=== PATIENT | male | born 1945 | race Caucasian/White ===

== ENCOUNTER 2016-10-03 20:30 | Emergency (ER) | payer MEDICARE, OTHER ==
[2016-10-03 20:44] LABS: BASOPHIL# 0.1 X 10^3uL (0.0-0.1); BASOPHILS 1.5 % (0.0-2.0); EOSINOPHILS 1.6 % (0.0-6.0); EOSINOPHILS# 0.2 X 10^3uL (0.0-0.4); HEMATOCRIT 46.7 % (42.0-54.0); HEMOGLOBIN 15.9 g/dL (14.0-18.0); LYMPHOCYTES 22.9 % (20.0-40.0); LYMPHOCYTES# 2.2 X 10^3uL (0.8-3.8); MEAN CELL VOLUME 86.4 fL (80.0-100.0); MEAN CORPUS. HGB CONCENTRATION 34.1 g/dL (32.0-36.0); MEAN CORPUSCULAR HEMOGLOBIN 29.5 pg (29.0-35.0); MEAN PLATELET VOLUME 9.4 fL (7.4-10.4); MONOCYTES 6.9 % (2.0-10.0); MONOCYTES# 0.7 X 10^3uL (0.2-1.0); NEUTROPHILS 67.1 % (54.0-75.0); NEUTROPHILS# 6.6 X 10^3uL (2.6-6.7); PLATELET COUNT 190 X 10^3uL (130-440); RED BLOOD COUNT 5.41 X 10^6uL (4.20-6.10); RED CELL DISTRIBUTION WIDTH 12.6 % (11.5-14.5); WHITE BLOOD COUNT 9.8 X 10^3uL (3.9-10.7)
[2016-10-03] MEDS ORDERED: NITROGLYCERIN 0.4 MG TAB.SUBL SUBLINGUAL ONE (20:50)
[2016-10-03 20:54] LABS: ALBUMIN 4.6 g/dL (3.5-5.0); ALKALINE PHOSPHATASE 74 U/L (38-126); ALT 54 U/L (21-72); AST 32 U/L (17-59); BILIRUBIN, DIRECT 0.2 mg/dL (0.0-0.4); BILIRUBIN, TOTAL 1.1 mg/dL (0.2-1.3); BLOOD UREA NITROGEN 22 mg/dL (9-20); CALCIUM 10.3 mg/dL (8.4-10.2); CHLORIDE 108 mmol/L (98-107); EST GLOMERULAR FILTRATION RATE > 60 mL/min; GLUCOSE 171 mg/dL (70-100); LIPASE 393 U/L (23-300); MAGNESIUM 1.9 mg/dL (1.6-2.3); POTASSIUM 3.8 mmol/L (3.5-5.1); SODIUM 144 mmol/L (137-145); TOTAL PROTEIN 7.8 g/dL (6.3-8.2)
[2016-10-03 21:06] LABS: TROPONIN I 0.044 ng/mL (0.00-0.034)
[2016-10-03] MEDS ORDERED: NITROGLYCERIN OINT 1 GM PACKET ONE (21:09)
[2016-10-03] MEDS ORDERED: D5W IV ONE (21:09)
[2016-10-03] MEDS ORDERED: HEPARIN SOD PORCINE 5,000 UNITS/ML VIAL ONE (21:09)
[2016-10-03] MEDS ORDERED: HEPARIN SOD PORCINE IV ONE (21:09)
[2016-10-03] MEDS ORDERED: EPTIFIBATIDE IV ONE (21:31)
[2016-10-03] MEDS ORDERED: EPTIFIBATIDE 20 MG/10 ML VIAL IV ONE (21:46)
--- NOTE | 2016-10-03 22:03 | RADIOLOGY REPORT ---
AP PORTABLE CHEST RADIOGRAPH CLINICAL INFORMATION: Chest pain. COMPARISON: None. FINDINGS: Lungs are adequately inflated. Left basilar opacity may reflect summation shadow however at electasis or consolidation are not excluded. Costophrenic angles are clear. Cardiomediastinal silhoue tte is normal in size. IMPRESSION: Left basilar opacity may reflect summation shadow however atelectasis or consolidation are not exclud ed. Final Electronic Signature: This report was electronically signed by Pankaj Horton MD on 10/03/2016 10:01 PM. [email or web address] /
--- NOTE | 2016-10-03 22:26 | ER PHYSICIAN DOCUMENTATION ---
Physician Documentation [facility] Name:Simon Hill Age:71 yrs Sex:Male :1945 Arrival Date:10/03/2016 Time:20:30 BedTrauma-C Private MD:Physician, No ED Gautam Simon Disposition: 10/03 21:37 Critical Care:. Disposition: 10/03/16 21:37 Transfer ordered to [facility]. Diagnosis are Myocardial Infarction - non ST elevation, Unstable Angina. - Reason for transfer: Specialty. - Accepting physician is Dr. Huggins. - Condition is Serious. - Problem is new. - Symptoms are unchanged. COBRA Form completed? Transfer - Mode of Transportation Ambulance HPI: 20:49 This 71 yrs old Male presents to ER via Wheelchair with complaints of Chest jm Pain. 20:49 The patient or guardian reports chest pain that is located primarily in the substernal jm area. Onset: on and off all day. The pain does not radiate. 20:50 There has been no movement of pain. Associated signs and symptoms: Pertinent negatives:. The chest pain is described as dull, a heaviness. Duration: The patient or guardian reports multiple episodes, that are intermittent, that wax and wane, exertional . Modifying factors: the symptoms are aggravated by exertion. Severity of pain: At its worst the pain was moderate in the emergency department the pain is a 2 / 10. Risk factors for coronary artery disease include: This patient is a diabetic. This patient has a history of high cholesterol. This patient has a history of hypertension. The patient has experienced similar episodes in the past. The patient has not recently seen a physician. Pt's had on and off CP for the past few days, worse w exertion. . Historical: - Allergies: SULFA (SULFONAMIDES); - Home Meds: 1. potassium chloride 2.5 mEq oral tab 2. amlodipine-benazepril 5-10 mg oral cap 3. glipizide 5 mg oral tab 4. trazodone 100 mg oral tab 5. melatonin 3 mg oral tab 6. aspirin 81 mg oral tab 7. tamsulosin 0.4 mg oral cp24 8. metformin 500 mg oral Tb24 - PMHx: Hypertension; - Tetanus: unable to assess. - Ebola Screening: : Patient denies exposure to infectious person. Patient denies travel to an Ebola-affected area in the 21 days before illness onset. . - Social history: Smoking status: Patient states was never smoker of tobacco. Patient uses alcohol but reports only rare drinking. - Immunization history: Unable to Obtain. ROS: 20:53 Constitutional: Negative for fever, malaise. jm 20:53 ENT: Negative for rhinorrhea, sinus congestion, sinus pain, sore throat. 20:53 Neck: Negative for stiffness, swelling. 20:53 Cardiovascular: Positive for chest pain, Negative for palpitations. 20:53 Respiratory: Negative for cough, shortness of breath. 20:53 Abdomen/GI: Negative for abdominal pain, nausea, vomiting, diarrhea. 20:53 Back: Negative for pain with movement, radiated pain. 20:53 MS/extremity: Positive for swelling. 20:53 Skin: Positive for swelling. 20:53 Neuro: Negative for dizziness, weakness. 20:53 Psych: Negative for anxiety, depression. 20:53 All other systems are negative. Exam: 20:54 Constitutional: The patient appears alert, awake, comfortable, obese. 20:54 Eyes: Periorbital structures: appear normal, Conjunctiva: normal. 20:54 ENT: Mouth: is normal, Voice: is normal. 20:54 Neck: Thyroid: appears normal, Trachea: is midline with no obvious abnormalities. 20:54 Chest/axilla: Inspection: normal, Palpation: is normal. 20:54 Cardiovascular: Rate: normal, Rhythm: regular, Edema: 1+ edema to level of left midcalf and right midcalf. 20:54 Respiratory: Respirations: normal, Breath sounds: are normal. 20:54 Abdomen/GI: Inspection: abdomen appears normal, Palpation: abdomen is soft and non-tender. 20:54 Musculoskeletal/extremity: DVT Exam: No signs of deep vein thrombosis. Calves: are non-tender, have equal circumference. 20:54 Skin: Appearance: Color: pink, no rash present. 20:54 Neuro: Mentation: is normal, Memory: is normal. 20:54 Psych: Behavior/mood is pleasant, cooperative, Affect is calm. Vital Signs: 20:48 BP 188 / 88; Pulse 90; Resp 18; Pulse Ox 94% on R/A; Weight 108.86 kg; Pain 2/10; lb 21:46 BP 120 / 56; Pulse 73; Resp 20; Pulse Ox 94% 2 lpm ; Weight 108.86 kg; Pain 0/10; lb 22:11 BP 120 / 56; Pulse 73; Resp 20; Pulse Ox 94% ; Pain 0/10; lb MDM: 20:32 Patient medically screened. 20:42 EKG attached lb 20:55 Differential diagnosis: acute myocardial infarction, chest wall pain, Cholelithiasis stable angina, unstable angina. Patient took aspirin in the Emergency Department. Data reviewed: vital signs, nurses notes, lab test result(s), EKG, radiologic studies, and as a result, I will *Transfer Patient. Test interpretation: by ED physician or midlevel provider: plain radiologic studies, ECG. Counseling: I had a detailed discussion with the patient and/or guardian regarding: the historical points, exam findings, and any diagnostic results supporting the discharge/admit diagnosis, lab results, radiology results, the need to transfer to another facility, [facility] does not immediately have the required specialist. ECG:. 21:36 Physician consultation: Dr. Fay was called at 21:05, was contacted at 21:10, regarding transfer, would like medications started, Integrilin . ED course: Pt w NSTEMI/Unstable angina. Will transfer to [facility]. 10/03 20:51 Order name: CBC AUTO DIF, MDIF/RMOR IF IND; Complete Time: 22:05 [facility] 10/03 20:55 Order name: BASIC METABOLIC PANEL; Complete Time: 22:05 [facility] 10/03 20:55 Order name: MAGNESIUM; Complete Time: 22:05 [facility] 10/03 20:55 Order name: HEPATIC PANEL; Complete Time: 22:05 [facility] 10/03 20:55 Order name: LIPASE; Complete Time: 22:05 [facility] 10/03 21:06 Order name: TROPONIN I; Complete Time: 22:05 [facility] 10/03 22:05 Order name: CHEST; [place] [id number] [facility] 10/03 20:33 Order name: 12-lead EKG; Complete Time: 20:41 10/03 20:33 Order name: Iv Saline Lock; Complete Time: 20:41 10/03 20:33 Order name: Place Patient On Monitor; Complete Time: 20:42 10/03 20:33 Order name: Pulse Ox Continuous; Complete Time: 20:41 EC:55 Rhythm is regular. QRS Harvey is Normal. MD interval is normal. QRS interval is normal. QT interval is normal. No Q waves. ST Segment is depressed in leads V3, V4, V5, V6, 2-5mm. Dispensed Medications: 20:41 Drug: Aspirin 81 mg, 4 tabs, total of 324 mg - Aspirin 81 mg; Route: PO; lb 21:50 Follow up: Response: No adverse reaction lb 20:41 Drug: Nitroglycerin 0.4 mg; Route: Sublingual; lb 21:50 Follow up: Response: Pain is decreased lb 21:00 Drug: Nitro-Bid Ointment 2 % 0.5 inches; Route: Transdermal; Site: anterior chest wall; lb 22:27 Follow up: Response: Pain is decreased lb 21:13 Drug: heparin 20 units/kg/hr; Route: IV; Rate: bolus; Site: right hand; lb 21:51 Follow up: IV Status: Infusing continued upon transfer; IV Intake: 50ml lb 21:53 Follow up: IV Intake: 2ml lb 21:13 Drug: heparin 12 units/kg/hr; Route: IV; Rate: calculated rate; Site: right hand; lb 21:53 Follow up: IV Status: Infusing continued upon transfer; IV Intake: 50ml lb 21:26 Drug: Integrilin 2 mcg/kg/min; Route: IV; Rate: calculated rate; Site: right lb antecubital; 21:54 Follow up: IV Status: Infusing continued upon transfer; IV Intake: 15ml lb 21:41 Drug: Integrilin 180 mcg/kg; Route: IVP; Site: right antecubital; lb 21:54 Follow up: Response: No adverse reaction Critical care time excluding procedures: 21:37 Critical care time: Bedside Care: 30 minutes, Consultation: 10 minutes, Family jm Intervention: 5 minutes. Total time: 45 minutes Signatures: Simon Florez MD MD jm Wisely, [facility] Saige Arenas
--- NOTE | 2016-10-03 22:26 | ER NURSING DOCUMENTATION ---
Nurse's Notes [facility] Name:Simon Hill Age:71 yrs Sex:Male :1945 Arrival Date:10/03/2016 Time:20:30 BedTrauma-C Private MD:Physician, No Diagnosis:Myocardial Infarction - non ST elevation;Unstable Angina Presentation: 10/03 20:35 Presenting complaint:. lb 20:35 Acuity: CHRISTINA 2 lb 20:43 Presenting complaint: Patient states: chest pain on and off for a few years, worse over lb past few weeks. right sided no radiation or shortness of breath. friends state increased SOB with ambulation recently. Transition of care: patient was not received from another setting of care. AIR CAT ACTIVATION no. Asprin Given Given in ED 324 mg po. Notified ED Physician of Gautam Aceves notified. 20:43 Method Of Arrival: Wheelchair lb Triage Assessment: 20:46 General: Appears uncomfortable, Behavior is appropriate for age, pleasant. Pain: lb Complains of pain in right breast Pain does not radiate. Pain currently is 2 out of 10 on a pain scale. Cardiovascular: Reports Rhythm is sinus rhythm with depression Chest pain is described as mild, is located in right radiates none began past 2 weeks. Historical: - Allergies: SULFA (SULFONAMIDES); - Home Meds: 1. potassium chloride 2.5 mEq oral tab 2. amlodipine-benazepril 5-10 mg oral cap 3. glipizide 5 mg oral tab 4. trazodone 100 mg oral tab 5. melatonin 3 mg oral tab 6. aspirin 81 mg oral tab 7. tamsulosin 0.4 mg oral cp24 8. metformin 500 mg oral Tb24 - PMHx: Hypertension; - Tetanus: unable to assess. - Ebola Screening: : Patient denies exposure to infectious person. Patient denies travel to an Ebola-affected area in the 21 days before illness onset. . - Social history: Smoking status: Patient states was never smoker of tobacco. Patient uses alcohol but reports only rare drinking. - Immunization history: Unable to Obtain. Screenin:47 Infectious Disease Risk None. Abuse screen: Denies threats or abuse. Denies injuries lb from another. Nutritional screening: No deficits noted. Assessment: 20:48 See Triage Assessment done by same RN. lb 22:25 Pain: Pain began years ago. lb Vital Signs: 20:48 BP 188 / 88; Pulse 90; Resp 18; Pulse Ox 94% on R/A; Weight 108.86 kg; Pain 2/10; lb 21:46 BP 120 / 56; Pulse 73; Resp 20; Pulse Ox 94% 2 lpm ; Weight 108.86 kg; Pain 0/10; lb 22:11 BP 120 / 56; Pulse 73; Resp 20; Pulse Ox 94% ; Pain 0/10; lb ED Course: 20:31 Patient arrived in ED. ma1 20:32 Simon Florez MD is Attending Physician. jm 20:32 Physician, No is Private Physician. ma1 20:35 Saige Arenas is Primary Nurse. lb 20:41 Triage completed. lb 20:42 EKG attached lb 21:05 Port Xray Completed. ms 21:55 Inserted peripheral IV: 18 gauge in right antecubital area and blood collected. Oxygen lb Oxygen administration via nasal cannula @ 2L/min. 21:55 Inserted peripheral IV: 18 gauge in right hand. lb 21:56 Valuables Remains with patient Patient has correct armband on for positive lb identification. Placed in gown. Bed in low position. Call light in reach. Side rails up X 1. personnel monitor on. Pulse ox on. NIBP on. Administered Medications: 20:41 Drug: Aspirin 81 mg, 4 tabs, total of 324 mg - Aspirin 81 mg; Route: PO; lb 21:50 Follow up: Response: No adverse reaction lb 20:41 Drug: Nitroglycerin 0.4 mg; Route: Sublingual; lb 21:50 Follow up: Response: Pain is decreased lb 21:00 Drug: Nitro-Bid Ointment 2 % 0.5 inches; Route: Transdermal; Site: anterior chest wall; lb 22:27 Follow up: Response: Pain is decreased lb 21:13 Drug: heparin 20 units/kg/hr; Route: IV; Rate: bolus; Site: right hand; lb 21:51 Follow up: IV Status: Infusing continued upon transfer; IV Intake: 50ml lb 21:53 Follow up: IV Intake: 2ml lb 21:13 Drug: heparin 12 units/kg/hr; Route: IV; Rate: calculated rate; Site: right hand; lb 21:53 Follow up: IV Status: Infusing continued upon transfer; IV Intake: 50ml lb 21:26 Drug: Integrilin 2 mcg/kg/min; Route: IV; Rate: calculated rate; Site: right lb antecubital; 21:54 Follow up: IV Status: Infusing continued upon transfer; IV Intake: 15ml lb 21:41 Drug: Integrilin 180 mcg/kg; Route: IVP; Site: right antecubital; lb 21:54 Follow up: Response: No adverse reaction lb Intake: 21:51 IV: 50ml; Total: 50ml. lb 21:53 IV: 50ml; Total: 100ml. lb 21:53 IV: 2ml; Total: 102ml. lb 21:54 IV: 15ml; Total: 117ml. lb Outcome: 21:37 ER care complete, transfer ordered by MD. lombardi 22:11 [facility] Time: October 03, 2016 at 21:00 Patient's face sheet was faxed to accepting facility. Face Sheet included patient's name, address, age, gender, contact information and insurance information. Patient will be transported by: [facility] ground. Report called to: Trice RUSSO Nurse and Physician Charting and Notes were sent to Accepting Facility. All tests and/or procedures with results, if applicable, were sent to accepting facility. 22:11 Condition: stable 22:11 Report given to Trice RUSSO 22:11 Discharge Assessment: Patient awake, alert and oriented x 3. No cognitive and/or functional deficits noted. Patient verbalized understanding of disposition instructions. 22:11 Instructed on need for transfer 22:26 Patient left the ED. lb Signatures: Simon Florez MD MD jm Strickland, Mary ms Wisely, Beth 2 Saige Arenas Melissa ma1
== END 2016-10-03 22:26 | disposition short-term general hospital (02) ==
LOC: ER 20:30
DX: I21.4 Non-ST elevation (NSTEMI) myocardial infarction (principal); R60.0 Localized edema; I20.0 Unstable angina; I10 Essential (primary) hypertension; E11.65 Type 2 diabetes mellitus with hyperglycemia; I49.1 Atrial premature depolarization; Z79.82 Long term (current) use of aspirin; Z79.899 Other long term (current) drug therapy; Z99.89 Dependence on other enabling machines and devices; Z74.3 Need for continuous supervision
CPT/HCPCS: 71010; 80048; 80076; 83690; 83735; 84484; 85025; 99285; J1327; J1644

== ENCOUNTER 2016-10-18 09:04 | Inpatient (IN) | payer MEDICARE, OTHER ==
[2016-10-18] MEDS ORDERED: ACETAMINOPHEN 325 MG TABLET PO PRN (09:52)
[2016-10-18] MEDS ORDERED: MAGNESIUM HYDROXIDE 30 ML UDC PO PRN (09:52)
[2016-10-18] MEDS ORDERED: GLYCERIN ADULT 2 GM SUPP.RECT RECTAL PRN (09:52)
[2016-10-18] MEDS ORDERED: POLYETHYLENE GLYCOL 3350 17 GM POWD.PACK PO PRN (09:52)
[2016-10-18] MEDS ORDERED: HOME MEDICATION LIST NEEDED 1 EA EACH MC ONE (09:52)
[2016-10-18] MEDS ORDERED: NITROGLYCERIN 0.4 MG TAB.SUBL SUBLINGUAL PRN (10:03)
[2016-10-18] MEDS: MUPIROCIN 2% TOPICAL SCH ×2 (17:24→21:09)
[2016-10-18] MEDS: WARFARIN SODIUM 2 MG TABLET PO SCH (17:35)
[2016-10-18 18:18] LABS: URINE MUCUS NONE SEEN (Up to 25%); URINE RBC NONE SEEN (0-5/hpf); URINE SQUAMOUS EPITHELIAL CELL NONE SEEN (<= 15/hpf)
[2016-10-18 18:21] LABS: URINE APPEARANCE CLEAR; URINE BACTERIA NONE SEEN (<10/hpf); URINE BILIRUBIN NEGATIVE (NEGATIVE); URINE BLOOD NEGATIVE (NEGATIVE); URINE COLOR YELLOW; URINE GLUCOSE NORMAL (NEGATIVE); URINE KETONE NEGATIVE (NEGATIVE); URINE LEUKOCYTE ESTERASE NEGATIVE (NEGATIVE); URINE NITRITE NEGATIVE (NEGATIVE); URINE PROTEIN NEGATIVE (NEG - TRACE); URINE SPECIFIC GRAVITY > OR = 1.030 (0.001-1.035); URINE UROBILINOGEN 0.2mg/dL (Normal) (NEG-1mg/dL); URINE WBC 0-4/hpf (0-4/hpf)
[2016-10-18] MEDS: AMIODARONE HCL 200 MG TABLET PO SCH (21:09)
[2016-10-18] MEDS: traZODone HCL 50 MG TABLET PO SCH (21:09)
[2016-10-18] MEDS: ATORVASTATIN CALCIUIM 40 MG TABLET PO SCH (21:10)
[2016-10-18] MEDS: BISACODYL 10 MG SUPP.RECT PR SCH (21:10)
[2016-10-18] MEDS: FAMOTIDINE 20 MG TABLET PO SCH (21:10)
[2016-10-18] MEDS: INSULIN GLARGINE,HUM.REC.ANLOG 100 UNITS/ML ML SUBCUT SCH (21:14)
[2016-10-19] MEDS: MUPIROCIN 2% TOPICAL SCH ×3 (08:14→20:34)
[2016-10-19] MEDS: TAMSULOSIN HCL 0.4 MG CAPSULE PO SCH (08:14)
[2016-10-19] MEDS: ESCITALOPRAM OXALATE 10 MG TABLET PO SCH (08:14)
[2016-10-19] MEDS: AMIODARONE HCL 200 MG TABLET PO SCH ×2 (08:14→20:38)
[2016-10-19] MEDS: FAMOTIDINE 20 MG TABLET PO SCH ×2 (08:15→20:39)
[2016-10-19] MEDS: LISINOPRIL 10 MG TABLET PO SCH (11:17)
[2016-10-19] MEDS ORDERED: POLYETHYLENE GLYCOL 3350 17 GM POWD.PACK PO PRN (12:20)
[2016-10-19] MEDS: BISACODYL 10 MG SUPP.RECT PR SCH ×2 (17:53→20:43)
[2016-10-19] MEDS: GLIPIZIDE 5 MG TABLET PO SCH (18:00)
[2016-10-19] MEDS: WARFARIN SODIUM 2 MG TABLET PO SCH (18:00)
--- NOTE | 2016-10-19 18:36 | HISTORY & PHYSICAL ---
DATE OF ADMISSION: 10/18/16 ATTENDING PHYSICIAN: Tiana Daily MD HISTORY OF PRESENT ILLNESS: This patient was admitted to [facility] on 10/03/16 with unstable angina. After some evaluation where he was noted to have significant coronary artery disease and an ejection fraction of 50 %, he was taken for 3 vessel coronary artery bypass grafting. He did fairly well in his postoperative period, although he did have over an hour of atrial fibrillation with rates up to the 130s, self converting. He was placed on Amiodarone and Coumadin for paroxysmal atrial fibrillation and will have continued follow up with Cardiology as an outpatient. He is now being admitted as a swing bed patient at [facility] for monitoring of his INR, monitoring of his vital signs, beginning cardiac rehab. He comes to us on postoperative day #12. PAST MEDICAL HISTORY 1. Type 2 diabetes. 2. Hyperlipidemia. 3. Hypertension. 4. Obesity. 5. Obstructive sleep apnea. 6. History of renal stones. 7. History of peripheral neuropathy. PAST SURGICAL HISTORY 1. 3 vessel coronary artery bypass graft. MEDICATIONS Amiodarone 200 mg p.o. b.i.d. Aspirin 81 mg enteric coated p.o. daily. Lipitor 80 mg p.o. daily. Oxygen as needed 1-2 liters by nasal cannula. Lexapro 20 mg p.o. daily. Glipizide 7.5 mg p.o. b.i.d. [place] 5/325 1 p.o. q.6 hours PRN. Lisinopril 10 mg p.o. daily. Melatonin 3-6 mg p.o. at h.s. PRN sleep. Metformin 2000 mg p.o. daily. Nitrostat 0.4 mg under the tongue PRN angina. Prilosec 20 mg p.o. daily. MiraLax 1 capful as needed. Tamsulosin 0.4 mg p.o. daily. Trazadone 100 mg p.o. at h.s. Coumadin 2.5-5 mg p.o. daily. ALLERGIES: Sulfa. SOCIAL HISTORY: Partially disabled. 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 He drinks 3 drinks per week. He lives with his Maryjo. REVIEW OF SYSTEMS: There were no new complaints to the weeks leading up to his unstable angina. PHYSICAL EXAMINATION VITAL SIGNS: Afebrile with a blood pressure of 135/74, pulse 60, respiratory rate 16-20. He is 92% on 2 liters of oxygen at rest. GENERAL: Pleasant older gentleman in no acute distress. Presently he has a regular rate and rhythm with no arrhythmia or murmur noted. CHEST: Clear to auscultation throughout. ABDOMEN: Obese, soft and nontender. EXTREMITIES: Remarkable for 1+ edema. He is wearing SVEN hose. He has some discomfort over his distal incision related to vein harvesting, but there is no erythema or significant ecchymosis. NEUROLOGIC: Symmetric exam. ASSESSMENT AND PLAN 1. Status post cardiac surgery for multiple vessel coronary artery disease. He is on the medications as recommended by Cardiology and will begin Physical Therapy. We will be alert to any cardiac complaints or decompensation. 2. Hypoxia. He still does have an oxygen requirement and uses BiPAP at night, and this will be monitored and hopefully get off the oxygen as he becomes more active. 3. Right lower extremity pain. I do not see any cellulitis or concern for clot. Will monitor and anticipate slow steady improvement. This was a minor surgical site and that is probably the reason for his discomfort. 4. Diabetes. His routine medications will be re-initiated and his blood sugars monitored as he settles into our swing bed program. It seems that his blood sugars have been fairly easy to control in the recent past. VALDO
[2016-10-19] MEDS: traZODone HCL 50 MG TABLET PO SCH (20:39)
[2016-10-19] MEDS: MELATONIN 3 MG TABLET PO PRN (20:39)
[2016-10-19] MEDS: ATORVASTATIN CALCIUIM 40 MG TABLET PO SCH (20:39)
[2016-10-19] MEDS: INSULIN GLARGINE,HUM.REC.ANLOG 100 UNITS/ML ML SUBCUT SCH (21:27)
[2016-10-20] MEDS: PANTOPRAZOLE 40 MG TABLET PO SCH (06:20)
[2016-10-20] MEDS: GLIPIZIDE 5 MG TABLET PO SCH (06:20)
[2016-10-20] MEDS: MUPIROCIN 2% TOPICAL SCH ×3 (10:09→22:30)
[2016-10-20] MEDS: FAMOTIDINE 20 MG TABLET PO SCH ×2 (10:10→21:38)
[2016-10-20] MEDS: BISACODYL 10 MG SUPP.RECT PR SCH ×2 (10:10→21:08)
[2016-10-20] MEDS: ESCITALOPRAM OXALATE 10 MG TABLET PO SCH (10:14)
[2016-10-20] MEDS: metFORMIN ER 500 MG TABLET PO SCH (10:14)
[2016-10-20] MEDS: TAMSULOSIN HCL 0.4 MG CAPSULE PO SCH (10:15)
[2016-10-20] MEDS: LISINOPRIL 10 MG TABLET PO SCH (10:32)
[2016-10-20] MEDS: AMIODARONE HCL 200 MG TABLET PO SCH ×2 (10:34→21:38)
[2016-10-20] MEDS: WARFARIN SODIUM 2 MG TABLET PO SCH (16:04)
[2016-10-20] MEDS ORDERED: INSULIN GLARGINE,HUM.REC.ANLOG 100 UNITS/ML ML SUBCUT SCH (19:36)
[2016-10-20] MEDS: ATORVASTATIN CALCIUIM 40 MG TABLET PO SCH (21:37)
[2016-10-20] MEDS: traZODone HCL 50 MG TABLET PO SCH (21:37)
[2016-10-21] MEDS: PANTOPRAZOLE 40 MG TABLET PO SCH (06:15)
[2016-10-21] MEDS: BISACODYL 10 MG SUPP.RECT PR SCH ×2 (08:33→21:46)
[2016-10-21] MEDS: AMIODARONE HCL 200 MG TABLET PO SCH ×2 (08:33→21:45)
[2016-10-21] MEDS: TAMSULOSIN HCL 0.4 MG CAPSULE PO SCH (08:34)
[2016-10-21] MEDS: metFORMIN ER 500 MG TABLET PO SCH (08:35)
[2016-10-21] MEDS: ESCITALOPRAM OXALATE 10 MG TABLET PO SCH (08:35)
[2016-10-21] MEDS: LISINOPRIL 10 MG TABLET PO SCH (08:36)
[2016-10-21] MEDS: FAMOTIDINE 20 MG TABLET PO SCH ×2 (08:36→21:44)
[2016-10-21] MEDS: MUPIROCIN 2% TOPICAL SCH ×3 (08:37→21:44)
[2016-10-21] MEDS: traZODone HCL 50 MG TABLET PO SCH (21:44)
[2016-10-21] MEDS: ATORVASTATIN CALCIUIM 40 MG TABLET PO SCH (21:44)
[2016-10-21] MEDS: INSULIN GLARGINE,HUM.REC.ANLOG 100 UNITS/ML ML SUBCUT SCH (21:45)
[2016-10-22] MEDS: PANTOPRAZOLE 40 MG TABLET PO SCH (06:12)
--- NOTE | 2016-10-22 08:31 | PROGRESS NOTE: IM APSO ---
Assessment and Plan - Date of Encounter Date of Encounter: 10/22/16 (1) s/p CABG Status: Chronic Assessment and plan: Doing well in recovery, diffusely weak, eager to work with PT. Home with hospital bed sometime in the next week probably. Current Visit: Yes (2) hypertension Status: Chronic Assessment and plan: BP on average acceptable; follow. Current Visit: Yes (3) DM2 Status: Chronic Assessment and plan: BS much more acceptable today on reduced medication; probably he is eating better in hospital requiring some changes. Current Visit: Yes (4) leg pain right Status: Acute Assessment and plan: r/t surgical wounds, no sign cellulitis or clot. Current Visit: Yes (5) parox a fib Status: Chronic Assessment and plan: f/u with cardiology planned, continue present meds (amiodarone and coumadin); INR has been elevated, rechk on Friday after dose reduction. Current Visit: Yes - Time Spent With Patient Total time spent with greater than 50% in coordination of care (as documented) at patient's floor/unit and/or counseling patient: IM: PN Subjective Respiratory: no SOB Musculoskeletal: pain (minimal distal incision RLE) Integumentary: wound (chest and RLE) IM: PN Objective Exam - I&O/Vital Signs I&O: Intake & Output 10/21/16 10/22/16 10/22/16 21:59 05:59 13:59 Intake Total 840 175 Output Total 800 600 Balance 40 -425 Intake: Oral 840 175 Output: Urine 800 600 Other: Urine Appearance Clear Clear Urine Color Pale Yellow Yellow Voiding Method Toilet Urinal # Voids 2 Vital Signs: Last Vital Signs Temp 36.5 C 10/22/16 06:27 Pulse 51 L 10/22/16 06:27 Resp 16 10/22/16 06:27 BP 158/77 10/22/16 06:27 Pulse Ox 94 10/22/16 06:27 Oxygen Flow Rate 2 Oxygen Delivery Method Nasal Cannula - Constitutional General appearance: Present: cooperative - ENT ENT exam: Present: mucous membranes moist - Neck Neck exam: Absent: lymphadenopathy - Respiratory Respiratory exam: Present: clear - Cardiovascular Cardiovascular exam: Present: RRR - GI/Abdominal GI/Abdominal exam: Present: soft - Extremities Exam Extremities exam: Absent: edema - Neurological Exam Neurological exam: Present: oriented X3 - Allied Health Notes Allied health notes reviewed: nursing, PT - Lab Labs: Laboratory Last Values Capillary INR 3.7 (0.8-1.2) H 10/21/16 06:15 Urine Color Yellow 10/18/16 Unknown Urine Appearance Clear 10/18/16 Unknown Urine pH 5.0 (5-7) 10/18/16 Unknown Ur Specific [place] > or = 1.030 (0.001-1.035) 10/18/16 Unknown Urine Protein Negative (NEG - TRACE) 10/18/16 Unknown Urine Ketones Negative (NEGATIVE) 10/18/16 Unknown Urine Blood Negative (NEGATIVE) 10/18/16 Unknown Urine Nitrate Negative (NEGATIVE) 10/18/16 Unknown Urine Bilirubin Negative (NEGATIVE) 10/18/16 Unknown Urine Urobilinogen 0.2mg/dl (normal) (NEG-1mg/dL) 10/18/16 Unknown Ur Leukocyte Esterase Negative (NEGATIVE) 10/18/16 Unknown Urine RBC None seen (0-5/hpf) 10/18/16 Unknown Urine WBC 0-4/hpf (0-4/hpf) 10/18/16 Unknown Ur Squamous Epith Cells None seen (<= 15/hpf) 10/18/16 Unknown Urine Bacteria None seen (<10/hpf) 10/18/16 Unknown Urine Mucus None seen (Up to 25%) 10/18/16 Unknown Urine Glucose Normal (NEGATIVE) 10/18/16 Unknown Quality Questions - VTE Prophylaxis Assessment VTE Present on Admission?: No Patient at risk for venous thromboembolism?: Yes VTE Risk Level: Low Risk Pharmaceutical VTE prophylaxis contraindication reason: N/A- VTE prophylaxsis ordered (on Coumadin) Mechanical VTE prophylaxis contraindication reason: N/A- 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
[2016-10-22] MEDS: metFORMIN ER 500 MG TABLET PO SCH (10:12)
[2016-10-22] MEDS: BISACODYL 10 MG SUPP.RECT PR SCH ×2 (10:13→20:51)
[2016-10-22] MEDS: ESCITALOPRAM OXALATE 10 MG TABLET PO SCH (10:15)
[2016-10-22] MEDS: AMIODARONE HCL 200 MG TABLET PO SCH ×2 (10:16→20:51)
[2016-10-22] MEDS: LISINOPRIL 10 MG TABLET PO SCH (10:17)
[2016-10-22] MEDS: TAMSULOSIN HCL 0.4 MG CAPSULE PO SCH (10:17)
[2016-10-22] MEDS: FAMOTIDINE 20 MG TABLET PO SCH ×2 (10:17→20:50)
[2016-10-22] MEDS: MUPIROCIN 2% TOPICAL SCH ×3 (10:18→21:17)
[2016-10-22] MEDS: ATORVASTATIN CALCIUIM 40 MG TABLET PO SCH (20:50)
[2016-10-22] MEDS: INSULIN GLARGINE,HUM.REC.ANLOG 100 UNITS/ML ML SUBCUT SCH (20:51)
[2016-10-22] MEDS: traZODone HCL 50 MG TABLET PO SCH (20:51)
[2016-10-23] MEDS: PANTOPRAZOLE 40 MG TABLET PO SCH (06:00)
[2016-10-23] MEDS: BISACODYL 10 MG SUPP.RECT PR SCH ×2 (10:17→22:01)
[2016-10-23] MEDS: TAMSULOSIN HCL 0.4 MG CAPSULE PO SCH (10:19)
[2016-10-23] MEDS: metFORMIN ER 500 MG TABLET PO SCH (10:20)
[2016-10-23] MEDS: ESCITALOPRAM OXALATE 10 MG TABLET PO SCH (10:22)
[2016-10-23] MEDS: FAMOTIDINE 20 MG TABLET PO SCH ×2 (10:23→22:03)
[2016-10-23] MEDS: LISINOPRIL 10 MG TABLET PO SCH (10:26)
[2016-10-23] MEDS: AMIODARONE HCL 200 MG TABLET PO SCH ×2 (10:29→22:03)
[2016-10-23] MEDS: MUPIROCIN 2% TOPICAL SCH ×3 (10:32→22:02)
[2016-10-23] MEDS: WARFARIN SODIUM 2 MG TABLET PO SCH (16:34)
[2016-10-23] MEDS: INSULIN GLARGINE,HUM.REC.ANLOG 100 UNITS/ML ML SUBCUT SCH (22:01)
[2016-10-23] MEDS: ATORVASTATIN CALCIUIM 40 MG TABLET PO SCH (22:03)
[2016-10-23] MEDS: traZODone HCL 50 MG TABLET PO SCH (22:04)
[2016-10-24] MEDS: PANTOPRAZOLE 40 MG TABLET PO SCH (06:29)
[2016-10-24] MEDS: MUPIROCIN 2% TOPICAL SCH ×3 (10:12→20:11)
[2016-10-24] MEDS: metFORMIN ER 500 MG TABLET PO SCH (10:14)
[2016-10-24] MEDS: ESCITALOPRAM OXALATE 10 MG TABLET PO SCH (10:17)
[2016-10-24] MEDS: TAMSULOSIN HCL 0.4 MG CAPSULE PO SCH (10:19)
[2016-10-24] MEDS: LISINOPRIL 10 MG TABLET PO SCH (10:20)
[2016-10-24] MEDS: FAMOTIDINE 20 MG TABLET PO SCH ×2 (10:21→20:12)
[2016-10-24] MEDS: AMIODARONE HCL 200 MG TABLET PO SCH ×2 (10:22→20:11)
[2016-10-24] MEDS: BISACODYL 10 MG SUPP.RECT PR SCH ×2 (11:55→20:08)
[2016-10-24] MEDS: WARFARIN SODIUM 2 MG TABLET PO SCH (16:54)
[2016-10-24 18:14] LABS: BASOPHIL# 0.1 X 10^3uL (0.0-0.1); BASOPHILS 1.6 % (0.0-2.0); EOSINOPHILS 2.2 % (0.0-6.0); EOSINOPHILS# 0.2 X 10^3uL (0.0-0.4); HEMATOCRIT 35.8 % (42.0-54.0); LYMPHOCYTES 16.2 % (20.0-40.0); LYMPHOCYTES# 1.2 X 10^3uL (0.8-3.8); MEAN CELL VOLUME 85.7 fL (80.0-100.0); MEAN CORPUS. HGB CONCENTRATION 33.5 g/dL (32.0-36.0); MEAN CORPUSCULAR HEMOGLOBIN 28.7 pg (29.0-35.0); MEAN PLATELET VOLUME 8.5 fL (7.4-10.4); MONOCYTES# 0.5 X 10^3uL (0.2-1.0); NEUTROPHILS# 5.4 X 10^3uL (2.6-6.7); RED BLOOD COUNT 4.18 X 10^6uL (4.20-6.10); RED CELL DISTRIBUTION WIDTH 12.4 % (11.5-14.5); WHITE BLOOD COUNT 7.4 X 10^3uL (3.9-10.7)
[2016-10-24] MEDS: traZODone HCL 50 MG TABLET PO SCH (20:11)
[2016-10-24] MEDS: ATORVASTATIN CALCIUIM 40 MG TABLET PO SCH (20:11)
[2016-10-24] MEDS: MELATONIN 3 MG TABLET PO PRN (20:12)
[2016-10-24] MEDS ORDERED: INSULIN GLARGINE,HUM.REC.ANLOG 100 UNITS/ML ML SUBCUT SCH (21:00)
[2016-10-25 06:43] VITALS: BP 111/57; PULSE 48; RESP 15; TEMP 98.6; O2SAT 91
[2016-10-25] MEDS: PANTOPRAZOLE 40 MG TABLET PO SCH (08:34)
[2016-10-25] MEDS ORDERED: WARFARIN SODIUM 2 MG TABLET PO SCH (08:57)
--- NOTE | 2016-10-25 09:03 | DC SUMMARY: IM Note ---
Discharge Summary: IM/Peds Provider: Date of Admission: 10/18/16 Admitting Provider: YUMIKO ARCHIBALD MD Attending Provider: YUMIOK ARCHIBALD MD Discharging Provider: YUMIKO ARCHIBALD MD Primary Care Provider: Discharge Date: 10/25/16 Consults: 10/18/16 09:52 Nutrition/Dietary Consult [CONS] Routine Reason: Swingbed Admission Protocol - Diagnosis (1) s/p CABG Status: Chronic (2) hypertension Status: Chronic (3) DM2 Status: Chronic (4) leg pain right Status: Acute (5) parox a fib Status: Chronic (6) Cellulitis of right arm Status: Acute Hospital Course: Pt was admitted from [facility] for rehab/cardiac monitoring after CABG, with some chronic health issues as well, DM2 and HTN. He has done well, making progress with PT and stable on his present medications. He had some tendency to hypoglycemia, so his medications have been reduced and simplified. Apparently he was only on Metformin at home and may well only need that. We will have a trial of Metformin only, and reintroduce lantus if necessary. He will have diabetic diet/lifestyle coaching through our clinic and be followed closely. C will follow at home for a week, and then we will move all care to outpatient. He has a small area of of cellulitis R forearm at the time of d/c, will start tx with Keflex and follow as outpt. This will cause his INR to need close monitoring for the next week or two. - Time Spent with Patient Total time spent providing and/or coordinating discharge services: Discharge - Patient/Caregiver Discharge Instructions Activity Level: Per PT! Keep up the good work Diet: diabetic diet; your diabetes has done well in the hospital. We may be able to return to metformin only; I will see you Friday and we will get some diabetic follow up scheduled with Cydney Govea for diet/diabetes, she is an expert! Additional Instructions: I'm going to hold your insulin for the week and let's gather a few blood sugars to see if it is really necessary. Eat and live well! If you need a glucometer your nurse will tell me and I will send order to your pharmacy. Bring it to Friday appt so we can review all. Follow up: YUMIKO ARCHIBALD MD [ACTIVE (Staff Physician)] - 11/01/16 11:00 am Overall discharge status: patient is progressing back to baseline Orders: Durable Medical Equipment Location: Determined By Patient Disposition: HOME, SELF-CARE Discharge Summary Data - Medication History Medication History: Home Medications Acyclovir [Acyclovir*] 400 mg PO TID PRN 10/18/16 Amiodarone HCl [Cordarone*] 200 mg PO BID 10/18/16 Atorvastatin Calcium [Lipitor*] 80 mg PO HS 10/18/16 Escitalopram Oxalate [Lexapro*] 20 mg PO DAILY 10/18/16 Glipizide [Glipizide*] 7.5 mg PO BEFORE BRKFST/DINN 10/18/16 Lisinopril [Prinivil*] 10 mg PO DAILY 10/18/16 Melatonin [Melatonin*] 3 mg PO HS PRN 10/18/16 Omeprazole [Prilosec] 20 mg PO BEFORE BREAKFAST 10/18/16 Polyethylene Glycol 3350 [Miralax*] 1 packet PO DAILY PRN 10/18/16 Potassium Citrate [Potassium Citrate ER] 1 tab PO BEFORE BRKFST/DINN 10/18/16 Tamsulosin HCl [Flomax*] 0.4 mg PO WITH BREAKFAST 10/18/16 Warfarin Sodium [Coumadin*] 5 mg PO DAILY@1600 10/18/16 aspirin EC [Aspirin EC*] 81 mg PO DAILY 10/18/16 metFORMIN ER [Glucophage Xr] 2,000 mg PO DAILY 10/18/16 traZODone HCL [Trazodone HCl*] 100 mg PO HS PRN 10/18/16 Inpatient Medications 10/18/16 10:03 Nitroglycerin [Nitrostat] 0.4 mg SUBLINGUAL Q5M PRN 10/18/16 15:00 Mupirocin 2% Oint [Bactroban 2% Ointment] 1 applic TOPICAL TID 10/18/16 21:00 Amiodarone HCl [Cordarone] 200 mg PO BID Atorvastatin Calcium [Lipitor] 80 mg PO HS Famotidine [Pepcid] 20 mg PO BID traZODone HCL [Desyrel] 100 mg PO HS 10/19/16 09:00 Escitalopram Oxalate [Lexapro] 20 mg PO DAILY Tamsulosin HCl [Flomax] 0.4 mg PO DAILY aspirin EC [Ecotrin 81 mg] 81 mg PO DAILY 10/19/16 12:20 Melatonin 3 mg PO HS PRN Polyethylene Glycol 3350 [miraLAX] 17 gm PO DAILY PRN 10/20/16 09:00 metFORMIN ER [Glucophage Xr] 2,000 mg PO DAILY 10/20/16 21:54 Lisinopril [Prinivil] 10 mg PO DAILY 10/24/16 21:00 Insulin Glargine,Hum.rec.anlog [Lantus] 8 units SUBCUT HS 10/25/16 08:57 Warfarin Sodium [Coumadin] 3 mg PO ONCE DAILY @1600 10/25/16 16:00 Cephalexin Monohydrate [Keflex] 500 mg PO TID@0800,1600,2200 Procedures and tests throughout hospitalization: Completed Lab Orders 10/18/16 UA W/ MICRO -CULTURE IF IND [URINE] Routine 10/19/16 06:25 Finger Stick INR [INR W/ CAPI DRAW] [HEM] AMDRAW 10/21/16 06:15 Finger Stick INR [INR W/ CAPI DRAW] [HEM] AMDRAW 10/24/16 18:00 CBC AUTO DIF, MDIF/RMOR IF IND [HEM] Routine 10/25/16 06:28 Finger Stick INR [INR W/ CAPI DRAW] [HEM] AMDRAW Pending Orders 10/18/16 09:52 Admit: Swing Bed Routine Activity: Ambulate TID Activity: Bathroom Privileges . Cleanse minor skin tears w/NS PRN Cover minor skin tears with PRN Obtain weight Q7D Resuscitation Status Routine Titrate Oxygen TITRATE B/W 90-95% Radio Program Director Consult [CM] Routine 10/18/16 09:56 Occupation Therapy Eval and Treat [OT] Routine 10/18/16 10:03 Nitroglycerin [Nitrostat] 0.4 mg SUBLINGUAL Q5M PRN 10/18/16 15:00 Mupirocin 2% Oint [Bactroban 2% Ointment] 1 applic TOPICAL TID 10/18/16 15:47 Physical Therapy Plan of Care [PT] Routine 10/18/16 16:29 accuchecks [Finger Stick Blood Sugar] ACHS FINGER STICK 10/18/16 16:39 EZPAP BID 10/18/16 18:58 Intake and Output QSHIFT I&O 10/18/16 21:00 Amiodarone HCl [Cordarone] 200 mg PO BID Atorvastatin Calcium [Lipitor] 80 mg PO HS Famotidine [Pepcid] 20 mg PO BID traZODone HCL [Desyrel] 100 mg PO HS 10/18/16 Lunch Diabetic [DIET] 10/19/16 09:00 Escitalopram Oxalate [Lexapro] 20 mg PO DAILY Tamsulosin HCl [Flomax] 0.4 mg PO DAILY aspirin EC [Ecotrin 81 mg] 81 mg PO DAILY 10/19/16 11:11 Vital Signs QSHIFT VS 10/19/16 12:20 Melatonin 3 mg PO HS PRN Polyethylene Glycol 3350 [miraLAX] 17 gm PO DAILY PRN 10/20/16 09:00 metFORMIN ER [Glucophage Xr] 2,000 mg PO DAILY 10/20/16 21:54 Lisinopril [Prinivil] 10 mg PO DAILY 10/21/16 12:46 Occupational Therapy Plan of Care [OT] Routine 10/24/16 21:00 Insulin Glargine,Hum.rec.anlog [Lantus] 8 units SUBCUT HS 10/25/16 08:57 Warfarin Sodium [Coumadin] 3 mg PO ONCE DAILY @1600 10/25/16 16:00 Cephalexin Monohydrate [Keflex] 500 mg PO TID@0800,1600,2200 Labs on day of discharge: Labs from last 24 hours 10/25/16 10/24/16 06:28 18:00 WBC 7.4 RBC 4.18 L Hgb 12.0 L Hct 35.8 L MCV 85.7 MCH 28.7 L MCHC 33.5 RDW 12.4 Plt Count 274 MPV 8.5 Neutrophils % 73.0 Lymphocytes % 16.2 L Eosinophils % 2.2 Basophils % 1.6 Neutrophils # 5.4 Lymphocytes # 1.2 Monocytes 7.0 Monocytes # 0.5 Eosinophils # 0.2 Basophils # 0.1 Capillary INR 1.6 H D IM: Discharge Physical Exam - I&O/Vital Signs I&O: Intake & Output 10/24/16 10/25/16 10/25/16 21:59 05:59 13:59 Intake Total 600 Output Total 225 Balance -225 600 Intake: Oral 600 Output: Urine 225 Other: Urine Appearance Clear Urine Color Yellow Voiding Method Toilet Toilet # Voids 2 Vital Signs: Last Vital Signs Temp 37.0 C 10/25/16 06:38 Pulse 48 L 10/25/16 06:38 Resp 15 10/25/16 06:38 BP 111/57 10/25/16 06:38 Pulse Ox 91 10/25/16 06:38 Oxygen Flow Rate 2 Oxygen Delivery Method Room Air - Constitutional General appearance: Present: cooperative - ENT ENT exam: Present: mucous membranes moist - Neck Neck exam: Absent: lymphadenopathy - Respiratory Respiratory exam: Present: clear - Cardiovascular Cardiovascular exam: Present: RRR - GI/Abdominal GI/Abdominal exam: Present: soft - Extremities Exam Extremities exam: Absent: edema - Neurological Exam Neurological exam: Present: oriented X3 - Skin Skin exam: Present: other (RLE incisions without concerning eryth, R forearm a 3cm diam eryth with some tissue swelling, cellulitis) - Allied Health Notes Allied health notes reviewed: nursing, PT
[2016-10-25] MEDS: TAMSULOSIN HCL 0.4 MG CAPSULE PO SCH (11:03)
[2016-10-25] MEDS: ESCITALOPRAM OXALATE 10 MG TABLET PO SCH (11:04)
[2016-10-25] MEDS: FAMOTIDINE 20 MG TABLET PO SCH (11:04)
[2016-10-25] MEDS: metFORMIN ER 500 MG TABLET PO SCH (11:05)
[2016-10-25] MEDS: MUPIROCIN 2% TOPICAL SCH (11:08)
[2016-10-25] MEDS: LISINOPRIL 10 MG TABLET PO SCH (11:09)
[2016-10-25] MEDS ORDERED: CEPHALEXIN MONOHYDRATE 250 MG CAPSULE PO ONE (11:09)
[2016-10-25] MEDS: AMIODARONE HCL 200 MG TABLET PO SCH (11:47)
[2016-10-25] MEDS ORDERED: CEPHALEXIN MONOHYDRATE 250 MG CAPSULE PO SCH (16:00)
== END 2016-10-25 10:18 | disposition home or self-care (01) | DRG 950 ==
LOC: IN 14:19
PROVIDERS: ADMIT Family Medicine; ATTEND Family Medicine
DX: Z48.812 Encounter for surgical aftercare following surgery on the circulatory system (principal); E11.42 Type 2 diabetes mellitus with diabetic polyneuropathy; I48.0 Paroxysmal atrial fibrillation; E78.5 Hyperlipidemia, unspecified; I10 Essential (primary) hypertension; E66.9 Obesity, unspecified; G47.33 Obstructive sleep apnea (adult) (pediatric); Z79.01 Long term (current) use of anticoagulants; Z79.899 Other long term (current) drug therapy; Z98.61 Coronary angioplasty status
CPT/HCPCS: 81001; 85025; 85610; 94664; 94668; J1815